=== PATIENT | male | born 1945 | race Caucasian/White ===

== ENCOUNTER 2017-04-19 08:00 | Inpatient (IN) | payer OTHER, MEDICARE ==
[~2017-04-19] VITALS: Ht 180.3 cm; Wt 100.2 kg
[2017-04-19] VITALS (7 sets, daily range): BP systolic 113–152; BP diastolic 72–87; PULSE 62–87; RESP 16–20; TEMP 96.6–98.1; O2SAT 97–98
[~2017-04-19 08:00] MED LIST: CEPH500C3 PO; KRIL300C3 PO; MULTCAP13 PO; NIAC500T18 PO; PAXI30TA7 PO
[2017-04-19] MEDS ORDERED: MULT-65 PO (08:26)
[2017-04-19] MEDS ORDERED: NIAC100T2 PO (08:26)
[2017-04-19] MEDS ORDERED: FISHCAP4 PO (08:26)
[2017-04-19] MEDS ORDERED: ASPI81TA23 PO (08:26)
[2017-04-19] MEDS ORDERED: PARO20TA2 PO (08:26)
--- NOTE | 2017-04-19 08:38 | PD ---
HPI Chief Complaint: Bite or Sting Time Seen by Provider: 08:13 Travel History International Travel<30 days: No Contact w/Intl Traveler<30days: No Traveled to known affect area: No History of Present Illness HPI Patient is a 72-year-old male who 2 days ago was bit by his dog, shots are up-to -date and dog is otherwise healthy. He states he is working in his garden and ever since then he's noticed a gradual increase in swelling of his right index finger. He states also hurting him whenever he tries to move it. Denies any fever denies any red streaks on his arm. Cannot recall his last tetanus, no chest pain or shortness of breath abdominal pain no nausea vomiting. PFSH Past Medical History Autoimmune Disease: No Blood Disorders: No Anxiety: Yes (PTSD) Depression: Yes Cancer: Yes (SKIN) Cardiovascular Problems: No Diabetes: No Diminished Hearing: No Endocrine: No Gastrointestinal Disorders: No Genitourinary: No Hypertension: Yes Immune Disorder: No Implanted Vascular Access Dvce: No Musculoskeletal: Yes (NECK AND SHOULDERS) Neurologic: Yes (TBI / PTSD) Psychiatric: Yes (PTSD) Reproductive: Yes Respiratory: No Immunizations Current: Yes Tetanus Vaccination: > 5 Years Influenza Vaccination: No Past Surgical History Abdominal Surgery: Yes (APPENDECTOMY ,CHOLESCYTECTOMY) Appendectomy: Yes Cholecystectomy: Yes Other Surgery: Yes Social History Alcohol Use: No Tobacco Use: No (QUIT 8 YEARS AGO) Substance Use: No Allergies-Medications (Allergen,Severity, Reaction): Coded Allergies: diatrizoate meglumine (Unverified Allergy, Mild, Vertigo, 04/19/17) gadobenic acid (Unverified Allergy, Mild, Vertigo, 04/19/17) gadodiamide (Unverified Allergy, Mild, Vertigo, 04/19/17) gadoteridol (Unverified Allergy, Mild, Vertigo, 04/19/17) iodixanol (Unverified Allergy, Mild, Vertigo, 04/19/17) iohexol (Unverified Allergy, Mild, Vertigo, 04/19/17) Reported Meds & Prescriptions Reported Meds & Active Scripts Active Reported Niacin Unknown Strength Tab Unknown Dose PO DAILY Multi-Vitamin Daily (Multiple Vitamin) 1 Tab Tab 1 Tab PO DAILY Fish Oil + D3 (Fish Oil-Cholecalciferol) 1,200-1,000 Mg-Unit Cap 1 Cap PO DAILY Aspirin EC (Aspirin) 81 Mg Tabdr 81 Mg PO DAILY Paroxetine (Paroxetine HCl) 20 Mg Tab 20 Mg PO DAILY Review of Systems Except as stated in HPI: all other systems reviewed are Neg Physical Exam Narrative GENERAL: Well-developed well-nourished, no obvious distress. Quite pleasant. SKIN: Focused skin assessment warm/dry. There is a laceration on the radial aspect of the index finger over the distal phalanx. Which is begun to heal. It is approximately centimeter long. There is significant erythema over the entirety of the index finger now starting to spread and the dorsum of the hand. HEAD: Atraumatic. Normocephalic. EYES: Pupils equal and round. No scleral icterus. No injection or drainage. ENT: No nasal bleeding or discharge. Mucous membranes pink and moist. NECK: Trachea midline. No JVD. CARDIOVASCULAR: Regular rate and rhythm. No murmur appreciated. RESPIRATORY: No accessory muscle use. Clear to auscultation. Breath sounds equal bilaterally. GASTROINTESTINAL: Abdomen soft, non-tender, nondistended. Hepatic and splenic margins not palpable. MUSCULOSKELETAL: No obvious deformities. No clubbing. No cyanosis. There is significant edema of his right index finger and a sausagelike fashion. There is pain with passive extension but no other Knavel's sign is present. The edema is starting to spread into the hand, the fingers warm erythematous and is unable to bend it. NEUROLOGICAL: Awake and alert. No obvious cranial nerve deficits. Motor grossly within normal limits. Normal speech. PSYCHIATRIC: Appropriate mood and affect; insight and judgment normal. Data Data Last Documented VS Vital Signs Date Time Temp Pulse Resp B/P (MAP) Pulse Ox O2 Delivery O2 Flow Rate FiO2 04/19/17 09:30 67 16 113/76 (88) 97 Room Air 04/19/17 08:07 98.1 Orders Orders Basic Metabolic Panel (Bmp) (04/19/17 08:35) Complete Blood Count With Diff (04/19/17 08:35) Ecg Monitoring (04/19/17 08:35) Iv Access Insert/Monitor (04/19/17 08:35) Oximetry (04/19/17 08:35) Oxygen Administration (04/19/17 08:35) Sodium Chloride 0.9% Flush (Ns Flush) (04/19/17 08:45) Piperacil-Tazo 4.5 Gm Premix (Zosyn 4.5 (04/19/17 08:45) Hand, Complete ([id number]) (04/19/17 ) [id number] (Booster) Inj (Boostrix (04/19/17 09:00) Aspirin Ec (Ecotrin Ec) (04/20/17 09:00) Paroxetine (Paxil) (04/20/17 09:00) Admit Order (Ed Use Only) (04/19/17 ) Labs Laboratory Tests Test 04/19/17 08:55 White Blood Count 13.0 TH/MM3 Red Blood Count 5.21 MIL/MM3 Hemoglobin 11.9 GM/DL Hematocrit 36.6 % Mean Corpuscular Volume 70.3 FL Mean Corpuscular Hemoglobin 22.9 PG Mean Corpuscular Hemoglobin Concent 32.6 % Red Cell Distribution Width 15.7 % Platelet Count 247 TH/MM3 Mean Platelet Volume 7.8 FL Neutrophils (%) (Auto) 77.8 % Lymphocytes (%) (Auto) 12.4 % Monocytes (%) (Auto) 8.8 % Eosinophils (%) (Auto) 0.6 % Basophils (%) (Auto) 0.4 % Neutrophils # (Auto) 10.1 TH/MM3 Lymphocytes # (Auto) 1.6 TH/MM3 Monocytes # (Auto) 1.1 TH/MM3 Eosinophils # (Auto) 0.1 TH/MM3 Basophils # (Auto) 0.1 TH/MM3 CBC Comment AUTO DIFF Differential Comment AUTO DIFF CONFIRMED Blood Urea Nitrogen 14 MG/DL Creatinine 0.97 MG/DL Random Glucose 134 MG/DL Calcium Level 8.6 MG/DL Sodium Level 137 MEQ/L Potassium Level 3.9 MEQ/L Chloride Level 104 MEQ/L Carbon Dioxide Level 26.7 MEQ/L Anion Gap 6 MEQ/L Estimat Glomerular Filtration Rate 76 ML/MIN [facility] Medical Decision Making Medical Screen Exam Complete: Yes Emergency Medical Condition: Yes Differential Diagnosis Sausage finger, dog bite cellulitis, tetanus status out of date, rabies exposure highly unlikely, sepsis highly unlikely, flexor tenosynovitis highly unlikely by clinical exam. Narrative Course Patient seen and examined in the emergency department, has significant cellulitis of his right index finger. I believe it's beyond the point for by mouth antibiotics. He does have a minimal elevated white blood cell count 13, 000 otherwise no Sirs criteria. Appears well in no distress. Has been given doses Zosyn, discussed with Dr. Mae for admission to the hospital. No discernible fluid collection was palpable and likely will not require surgical intervention. Diagnosis Primary Impression: Cellulitis of finger of right hand Additional Impression: Dog bite Admitting Information Admitting Physician Requests: Admit Condition: Stable Pasquale Do MD Apr 19, 2017 08:38
[2017-04-19] MEDS ORDERED: PIPERACIL-TAZO 4.5 GM PREMIX 100 ML IV ONE (08:45)
[2017-04-19] MEDS ORDERED: SODIUM CHLORIDE 0.9% FLUSH 10 ML FLUSH IVF PRN (08:45)
[2017-04-19 08:59] LABS: AUTOMATED NEUTROPHIL # 10.1 TH/MM3 (1.8-7.7); BASOPHIL # 0.1 TH/MM3 (0-0.2); BASOPHIL % 0.4 % (0.0-2.0); EOSINOPHIL # 0.1 TH/MM3 (0-0.4); EOSINOPHIL % 0.6 % (0.0-4.0); HEMATOCRIT 36.6 % (39.0-51.0); LYMPH % 12.4 % (9.0-44.0); LYMPHOCYTE # 1.6 TH/MM3 (1.0-4.8); MEAN CELL VOLUME 70.3 FL (80.0-100.0); MEAN CORPUSCULAR HEMOGLOBIN 22.9 PG (27.0-34.0); MEAN CORPUSCULAR HGB CONC 32.6 % (32.0-36.0); MONO % 8.8 % (0.0-8.0); NEUT % 77.8 % (16.0-70.0); PLATELET COUNT 247 TH/MM3 (150-450); RED BLOOD COUNT 5.21 MIL/MM3 (4.50-5.90); RED CELL DISTRIBUTION WIDTH 15.7 % (11.6-17.2)
[2017-04-19] MEDS ORDERED: DIPHTH/TETANUS/ACEL PERTUSSIS (BOOSTER) 0.5 ML VIAL/PFS IM ONE (09:00)
[2017-04-19 09:03] LABS: HEMO FLAGS AUTO DIFF
[2017-04-19 09:04] LABS: POTASSIUM 3.9 MEQ/L (3.5-5.1)
[2017-04-19 09:07] LABS: BICARBONATE 26.7 MEQ/L (21.0-32.0)
--- NOTE | 2017-04-19 09:19 | RADRPT ---
EXAM DATE/TIME: 04/19/2017 09:09 [place] COMPARISON: No previous studies available for comparison. INDICATIONS : Right 2nd digit pain and swelling, dog bite 3 days ago. MEDICAL HISTORY : None. SURGICAL HISTORY : None. ENCOUNTER: Initial ACUITY: 3 days PAIN SCORE: 3/10 LOCATION: Right 2nd digit FINDINGS: Three view examination of the right hand demonstrates marked soft tissue swelling of the second finge r however there is no evidence of dislocation or fracture. The carpal bones appear intact. The int erphalangeal and metacarpophalangeal joints are intact. Bony mineralization is normal. Severe osteoa rthritis of the first carpal metacarpal joint CONCLUSION: Marked soft tissue swelling of the second finger without evidence of foreign body. Osteoarthritis of multiple IP joints and the first carpometacarpal joint. Gael Barber MD on April 19, 2017 at 9:17 Board Certified Radiologist. This report was verified electronically.
[2017-04-19 09:34] LABS: SCAN/DIFF AUTO DIFF CONFIRMED
[2017-04-19] MEDS ORDERED: ENALAPRILAT 2.5 MG/2 ML VIAL IV PUSH PRN (10:00)
[2017-04-19] MEDS ORDERED: ACETAMINOPHEN 325 MG TAB PO PRN ×2 (10:00)
[2017-04-19] MEDS ORDERED: ACETAMINOPHEN/HYDROcodone 325 MG/5 MG TAB PO PRN (10:00)
[2017-04-19] MEDS ORDERED: MAGNESIUM HYDROXIDE SUSP 30 ML CUP PO PRN (10:00)
[2017-04-19] MEDS ORDERED: SODIUM CHLORIDE 0.9% FLUSH 10 ML FLUSH IV FLUSH PRN (10:00)
[2017-04-19] MEDS ORDERED: NALOXONE HCL 0.4 MG/ML AMP IV PUSH PRN (10:00)
[2017-04-19] MEDS ORDERED: RESP: ALBUTEROL 2.5 MG/IPRATROPIUM 0.5 MG NEB (PRN) NEB (10:00)
[2017-04-19] MEDS ORDERED: ONDANSETRON HCL 4 MG/2 ML VIAL IVP PRN (10:00)
--- NOTE | 2017-04-19 12:42 | HHI.HP ---
[facility] Primary Care Physician [facility] Admission Diagnosis Dog Bite Cellulitis of Finger. Diagnoses: (1) Cellulitis of finger of right hand (2) Dog bite Chief Complaint: Swollen right index finger Travel History International Travel<30 Days: No Contact w/Intl Traveler <30 Da: No Traveled to Known Affected Are: No History of Present Illness 72-year-old male with no significant past medical history presented to the ED for evaluation of swelling/worsening redness right index finger rolling a bite from his healthy dog 04/15/17. She states, the swelling begun on 04/17/17 associated with redness and feeling warm finger however without any throbbing pain or afebrile episode. The dog shots are up-to -date. Patient has no other issues Review of Systems Except as stated in HPI: all other systems reviewed are Neg Past Family Social History Past Medical History History of posttraumatic stress disorder History of osteoarthritis both knee joints History of hypertension not on any medications Past Surgical History Left fifth finger surgery Left knee surgery complicated by a MRSA infection many many years ago Allergies: Coded Allergies: diatrizoate meglumine (Unverified Allergy, Mild, Vertigo, 04/19/17) gadobenic acid (Unverified Allergy, Mild, Vertigo, 04/19/17) gadodiamide (Unverified Allergy, Mild, Vertigo, 04/19/17) gadoteridol (Unverified Allergy, Mild, Vertigo, 04/19/17) iodixanol (Unverified Allergy, Mild, Vertigo, 04/19/17) iohexol (Unverified Allergy, Mild, Vertigo, 04/19/17) Family History Patient was adopted child Social History Denies alcohol use History of smoking quit 3 years ago Denies substance abuse Physical Exam Vital Signs Vital Signs Date Time Temp Pulse Resp B/P (MAP) Pulse Ox O2 Delivery O2 Flow Rate FiO2 04/19/17 11:36 04/19/17 10:30 68 16 04/19/17 09:30 67 16 113/76 (88) 97 Room Air 04/19/17 08:30 97 Room Air 04/19/17 08:30 16 97 Room Air 04/19/17 08:19 16 04/19/17 08:10 78 16 140/87 (104) 97 Room Air 04/19/17 08:07 98.1 87 16 97 Physical Exam GENERAL: This is a well-nourished, well-developed patient, in no apparent distress. SKIN: No rashes, ecchymoses or lesions. Cool and dry. Swollen right index finger with associated erythema HEAD: Atraumatic. Normocephalic. No temporal or scalp tenderness. EYES: Pupils equal round and reactive. Extraocular motions intact. No scleral icterus. No injection or drainage. ENT: Nose without bleeding, purulent drainage or septal hematoma. Throat without erythema, tonsillar hypertrophy or exudate. Uvula midline. Airway patent. NECK: Trachea midline. No JVD or lymphadenopathy. Supple, nontender, no meningeal signs. CARDIOVASCULAR: Regular rate and rhythm without murmurs, gallops, or rubs. RESPIRATORY: Clear to auscultation. Breath sounds equal bilaterally. No wheezes , rales, or rhonchi. GASTROINTESTINAL: Abdomen soft, non-tender, nondistended. No hepato-splenomegaly , or palpable masses. No guarding. MUSCULOSKELETAL: Extremities without clubbing, cyanosis, or edema. No joint tenderness, effusion, or edema noted. No calf tenderness. Negative Homans sign bilaterally. NEUROLOGICAL: Awake and alert. Cranial nerves II through XII intact. Motor and sensory grossly within normal limits. Five out of 5 muscle strength in all muscle groups. Normal speech. Laboratory Laboratory Tests Test 04/19/17 08:55 White Blood Count 13.0 Red Blood Count 5.21 Hemoglobin 11.9 Hematocrit 36.6 Mean Corpuscular Volume 70.3 Mean Corpuscular Hemoglobin 22.9 Mean Corpuscular Hemoglobin Concent 32.6 Red Cell Distribution Width 15.7 Platelet Count 247 Mean Platelet Volume 7.8 Neutrophils (%) (Auto) 77.8 Lymphocytes (%) (Auto) 12.4 Monocytes (%) (Auto) 8.8 Eosinophils (%) (Auto) 0.6 Basophils (%) (Auto) 0.4 Neutrophils # (Auto) 10.1 Lymphocytes # (Auto) 1.6 Monocytes # (Auto) 1.1 Eosinophils # (Auto) 0.1 Basophils # (Auto) 0.1 CBC Comment AUTO DIFF Differential Comment AUTO DIFF CONFIRMED Blood Urea Nitrogen 14 Creatinine 0.97 Random Glucose 134 Calcium Level 8.6 Sodium Level 137 Potassium Level 3.9 Chloride Level 104 Carbon Dioxide Level 26.7 Anion Gap 6 Estimat Glomerular Filtration Rate 76 Result Diagram: 04/19/17 0855 04/19/17 0855 Imaging Last Impressions Hand X-Ray 04/19/17 0000 Signed Impressions: Service Date/Time: Wednesday, April 19, 2017 09:09 - CONCLUSION: Marked soft tissue swelling of the second finger without evidence of foreign body. Osteoarthritis of multiple IP joints and the first carpometacarpal joint. MD Colby Carrasco VTE Risk Assessment Colby VTE Risk Assessment: Mod/High Risk (score >= 2) Caprini Risk Assessment Model Point Value = 1 Point Value = 2 Point Value = 3 Point Value = 5 Age 41-60 Minor surgery BMI > 25 kg/m2 Swollen legs Varicose veins or History of unexplained or recurrent spontaneous Oral contraceptives or hormone replacement Sepsis (< 1 month) Serious lung disease, including pneumonia (< 1 month) Abnormal pulmonary function Acute myocardial infarction Congestive heart failure (< 1 month) History of inflammatory bowel disease Medical patient at bed rest Age 61-74 Arthroscopic surgery Major open surgery (> 45 min) Laparoscopic surgery (> 45 min) Malignancy Confined to bed (> 72 hours) Immobilizing plaster cast Central venous access Age >= 75 History of VTE Family history of VTE Factor V Leiden Prothrombin [id number] Lupus anticoagulant Anticardiolipin antibodies Elevated serum homocysteine Heparin-induced thrombocytopenia Other congenital or acquired thrombophilia Stroke (< 1 month) Elective arthroplasty Hip, pelvis, or leg fracture Acute spinal cord injury (< 1 month) Prophylaxis Regimen Total Risk Factor Score Risk Level Prophylaxis Regimen 0-1 Low Early ambulation 2 Moderate Order ONE of the following: *Sequential Compression Device (SCD) *Heparin 5000 units SQ BID 3-4 Higher Order ONE of the following medications: *Heparin 5000 units SQ TID *Enoxaparin/Lovenox 40 mg SQ daily (WT < 150 kg, CrCl > 30 mL/min) *Enoxaparin/Lovenox 30 mg SQ daily (WT < 150 kg, CrCl > 10-29 mL/min) *Enoxaparin/Lovenox 30 mg SQ BID (WT < 150 kg, CrCl > 30 mL/min) AND/OR *Sequential Compression Device (SCD) 5 or more Highest Order ONE of the following medications: *Heparin 5000 units SQ TID (Preferred with Epidurals) *Enoxaparin/Lovenox 40 mg SQ daily (WT < 150 kg, CrCl > 30 mL/min) *Enoxaparin/Lovenox 30 mg SQ daily (WT < 150 kg, CrCl > 10-29 mL/min) *Enoxaparin/Lovenox 30 mg SQ BID (WT < 150 kg, CrCl > 30 mL/min) AND *Sequential Compression Device (SCD) Assessment and Plan Problem List: (1) Cellulitis of finger of right hand ICD Code: L03.011 - Cellulitis of right finger Status: Acute (2) Dog bite ICD Code: W54.0XXA - Bitten by dog, initial encounter Status: Acute Assessment and Plan 72-year-old man with Cellulitis of finger of right hand Dog bite Hand x-ray noted and reviewed by me with finding of marked soft tissue swelling of the right index finger Status post Zosyn IV 1 in ED, continue with antibiotic pending culture report Pain management accordingly Consider hand surgery consultation if no improvement Leukocytosis Secondary to above infectious process DVT prophylaxis: Bilateral SCDs Code Status Full code Discussed Condition With Patient, ED physician Physician Certification 2 Midnight Certification Type: Admission for Inpatient Services Order for Inpatient Services The services are ordered in accordance with Medicare regulations or non- Medicare payer requirements, as applicable. In the case of services not specified as inpatient-only, they are appropriately provided as inpatient services in accordance with the 2-midnight benchmark. Estimated LOS (days): 2 days is the estimated time the patient will need to remain in the hospital, assuming treatment plan goals are met and no additional complications. Post-Hospital Plan: Not yet determined Antony Mae MD Apr 19, 2017 12:42
[2017-04-19] MEDS: PIPERACIL-TAZO 3.375 GM PREMIX 50 ML IV SCH (17:25)
[2017-04-19] MEDS: LACTOBACILLUS ACIDOPHILUS TAB PO SCH (20:23)
[2017-04-19] MEDS: SODIUM CHLORIDE 0.9% FLUSH 10 ML FLUSH IV FLUSH SCH (20:24)
[2017-04-20] VITALS: BP 110/63; PULSE 66; RESP 20; TEMP 99; O2SAT 97
[2017-04-20] MEDS: PIPERACIL-TAZO 3.375 GM PREMIX 50 ML IV SCH ×3 (00:46→17:38)
[2017-04-20 04:00] VITALS: BP 108/61; PULSE 61; RESP 20; TEMP 97.8; O2SAT 97
[2017-04-20 06:32] LABS: AUTOMATED NEUTROPHIL # 5.2 TH/MM3 (1.8-7.7); BASOPHIL # 0.1 TH/MM3 (0-0.2); BASOPHIL % 0.8 % (0.0-2.0); EOSINOPHIL # 0.2 TH/MM3 (0-0.4); EOSINOPHIL % 2.5 % (0.0-4.0); HEMATOCRIT 34.8 % (39.0-51.0); LYMPH % 30.3 % (9.0-44.0); LYMPHOCYTE # 2.8 TH/MM3 (1.0-4.8); MEAN CELL VOLUME 70.6 FL (80.0-100.0); MEAN CORPUSCULAR HEMOGLOBIN 23.3 PG (27.0-34.0); MONO % 12.1 % (0.0-8.0); NEUT % 54.3 % (16.0-70.0); PLATELET COUNT 235 TH/MM3 (150-450); RED BLOOD COUNT 4.94 MIL/MM3 (4.50-5.90); RED CELL DISTRIBUTION WIDTH 15.6 % (11.6-17.2); WHITE BLOOD COUNT 9.4 TH/MM3 (4.0-11.0)
[2017-04-20 06:39] LABS: HEMO FLAGS AUTO DIFF
[2017-04-20 06:43] LABS: CHLORIDE 105 MEQ/L (98-107); POTASSIUM 3.9 MEQ/L (3.5-5.1); SODIUM (NA) 139 MEQ/L (136-145)
[2017-04-20 06:49] LABS: ANION GAP 7 MEQ/L (5-15); BICARBONATE 26.9 MEQ/L (21.0-32.0)
[2017-04-20 06:50] LABS: BLOOD UREA NITROGEN 15 MG/DL (7-18)
[2017-04-20 06:52] LABS: ALT (GPT) 23 U/L (12-78)
[2017-04-20 06:53] LABS: AST (GOT) 16 U/L (15-37); GLOMERULAR FILTRATION RATE 76 ML/MIN (>89)
[2017-04-20 06:54] LABS: TOTAL BILIRUBIN ADULT 1.2 MG/DL (0.2-1.0)
[2017-04-20 06:55] LABS: ALKALINE PHOSPHATASE 78 U/L (45-117)
[2017-04-20 07:31] LABS: SCAN/DIFF AUTO DIFF CONFIRMED
[2017-04-20 08:00] VITALS: BP 118/80; PULSE 74; RESP 14; TEMP 96.2; O2SAT 96
[2017-04-20] MEDS: LACTOBACILLUS ACIDOPHILUS TAB PO SCH ×2 (08:21→20:20)
[2017-04-20] MEDS: ASPIRIN EC 81 MG TABEC PO SCH (08:21)
[2017-04-20] MEDS: PARoxetine HCL 20 MG TAB PO SCH (08:21)
[2017-04-20] MEDS: SODIUM CHLORIDE 0.9% FLUSH 10 ML FLUSH IV FLUSH SCH ×2 (08:22→20:20)
--- NOTE | 2017-04-20 10:24 | HHI.PR ---
Subjective Remarks Follow-up cellulitis right index finger 04/20/17-patient seen and examined, states now he can flex his right index finger with less swelling and pain. Afebrile. Objective Vitals Vital Signs Date Time Temp Pulse Resp B/P (MAP) Pulse Ox O2 Delivery O2 Flow Rate FiO2 04/20/17 04:00 97.8 61 20 108/61 (77) 97 04/20/17 00:00 99.0 66 20 110/63 (79) 97 04/19/17 20:00 97.9 66 20 116/85 (95) 97 04/19/17 16:00 97.7 62 20 123/72 (89) 98 04/19/17 12:00 96.6 67 18 152/87 (108) 97 04/19/17 11:36 04/19/17 10:30 68 16 I/O 04/19/17 04/19/17 04/19/17 04/20/17 04/20/17 04/20/17 06:59 14:59 22:59 06:59 14:59 22:59 Intake Total 100 ml 290 ml 170 ml Balance 100 ml 290 ml 170 ml Intake Oral 240 ml 120 ml IV Total 100 ml 50 ml 50 ml # Voids 2 1 # Bowel Movements 0 Result Diagram: 04/20/17 0535 04/20/17 0535 Imaging Last Impressions Hand X-Ray 04/19/17 0000 Signed Impressions: Service Date/Time: Wednesday, April 19, 2017 09:09 - CONCLUSION: Marked soft tissue swelling of the second finger without evidence of foreign body. Osteoarthritis of multiple IP joints and the first carpometacarpal joint. Gael Barber MD Objective Remarks GENERAL: NAD SKIN: Warm and dry. Swelling and improving erythema right index finger HEAD: Normocephalic. EYES: No scleral icterus. No injection or drainage. NECK: Supple, trachea midline. No JVD or lymphadenopathy. CARDIOVASCULAR: Regular rate and rhythm without murmurs, gallops, or rubs. RESPIRATORY: Breath sounds equal bilaterally. No accessory muscle use. GASTROINTESTINAL: Abdomen soft, non-tender, nondistended. MUSCULOSKELETAL: No cyanosis, or edema. BACK: Nontender without obvious deformity. No CVA tenderness. Procedures none A/P Problem List: (1) Cellulitis of finger of right hand ICD Code: L03.011 - Cellulitis of right finger Status: Acute (2) Dog bite ICD Code: W54.0XXA - Bitten by dog, initial encounter Status: Acute Assessment and Plan 72-year-old man with Cellulitis of finger of right hand-improving Dog bite Hand x-ray with finding of marked soft tissue swelling of the right index finger Currently on Zosyn IV pending culture report Pain management accordingly Consider hand surgery consultation if no improvement Leukocytosis Resolved DVT prophylaxis: Bilateral SCDs Antony Mae MD Apr 20, 2017 10:24
[2017-04-20 12:00] VITALS: BP 151/88; PULSE 66; RESP 16; TEMP 96.3; O2SAT 95
[2017-04-20 16:00] VITALS: BP 151/93; PULSE 65; RESP 16; TEMP 97; O2SAT 97
[2017-04-20 20:00] VITALS: BP 124/76; PULSE 69; RESP 20; TEMP 96.7; O2SAT 96
[2017-04-21] VITALS: BP 128/78; PULSE 61; RESP 20; TEMP 96; O2SAT 97
[2017-04-21] MEDS: PIPERACIL-TAZO 3.375 GM PREMIX 50 ML IV SCH ×2 (00:57→10:10)
[2017-04-21 08:00] VITALS: BP 134/77; PULSE 60; RESP 18; TEMP 97.3; O2SAT 96
[2017-04-21] MEDS: PARoxetine HCL 20 MG TAB PO SCH (09:44)
[2017-04-21] MEDS: LACTOBACILLUS ACIDOPHILUS TAB PO SCH (09:45)
[2017-04-21] MEDS: ASPIRIN EC 81 MG TABEC PO SCH (09:45)
--- NOTE | 2017-04-21 09:56 | HHI.PR ---
Subjective Remarks Follow-up cellulitis right index finger 04/20/17-patient seen and examined, states now he can flex his right index finger with less swelling and pain. Afebrile. 04/21/17-patient seen and examined, he has more movement to the right index finger and denies any significant tenderness. Afebrile and would like to be discharged home today. Objective Vitals Vital Signs Date Time Temp Pulse Resp B/P (MAP) Pulse Ox O2 Delivery O2 Flow Rate FiO2 04/21/17 08:00 97.3 60 18 134/77 (96) 96 04/21/17 00:00 96.0 61 20 128/78 (95) 97 04/20/17 20:00 96.7 69 20 124/76 (92) 96 04/20/17 16:00 97.0 65 16 151/93 (112) 97 04/20/17 12:00 96.3 66 16 151/88 (109) 95 I/O 04/20/17 04/20/17 04/20/17 04/21/17 04/21/17 04/21/17 07:00 15:00 23:00 07:00 15:00 23:00 Intake Total 170 ml 290 ml 740 ml 170 ml Balance 170 ml 290 ml 740 ml 170 ml Intake Oral 120 ml 240 ml 740 ml 120 ml IV Total 50 ml 50 ml 50 ml # Voids 1 10 2 # Bowel Movements 0 0 0 Result Diagram: 04/20/17 0535 04/20/17 0535 Imaging Last Impressions Hand X-Ray 04/19/17 0000 Signed Impressions: Service Date/Time: Wednesday, April 19, 2017 09:09 - CONCLUSION: Marked soft tissue swelling of the second finger without evidence of foreign body. Osteoarthritis of multiple IP joints and the first carpometacarpal joint. Gael Barber MD Objective Remarks GENERAL: NAD SKIN: Warm and dry. improved Swelling and erythema right index finger HEAD: Normocephalic. EYES: No scleral icterus. No injection or drainage. NECK: Supple, trachea midline. No JVD or lymphadenopathy. CARDIOVASCULAR: Regular rate and rhythm without murmurs, gallops, or rubs. RESPIRATORY: Breath sounds equal bilaterally. No accessory muscle use. GASTROINTESTINAL: Abdomen soft, non-tender, nondistended. MUSCULOSKELETAL: No cyanosis, or edema. BACK: Nontender without obvious deformity. No CVA tenderness. Procedures none A/P Problem List: (1) Cellulitis of finger of right hand ICD Code: L03.011 - Cellulitis of right finger Status: Resolved (2) Dog bite ICD Code: W54.0XXA - Bitten by dog, initial encounter Status: Acute Assessment and Plan 72-year-old man with Cellulitis of finger of right hand-improving Dog bite Hand x-ray with finding of marked soft tissue swelling of the right index finger Improving on Zosyn IV pending culture report Pain management accordingly Leukocytosis Resolved DVT prophylaxis: Bilateral SCDs Antony Mae MD Apr 21, 2017 09:56
[2017-04-21] MEDS ORDERED: LACTCHW3 CHEW (09:59)
[2017-04-21] MEDS ORDERED: AUGM875T3 PO (09:59)
--- NOTE | 2017-04-21 10:01 | HHI.DS ---
Discharge Summary Admission Date Apr 19, 2017 at 09:46 Discharge Date: Apr 21, 2017 Admitting Diagnosis Dog Bite Cellulitis of Finger. (1) Cellulitis of finger of right hand ICD Code: L03.011 - Cellulitis of right finger Status: Resolved (2) Dog bite ICD Code: W54.0XXA - Bitten by dog, initial encounter Status: Acute Procedures none Brief History - From Admission 72-year-old male with no significant past medical history presented to the ED for evaluation of swelling/worsening redness right index finger rolling a bite from his healthy dog 04/15/17. She states, the swelling begun on 04/17/17 associated with redness and feeling warm finger however without any throbbing pain or afebrile episode. The dog shots are up-to -date. Patient has no other issues CBC/BMP: 04/20/17 0535 04/20/17 0535 Significant Findings Laboratory Tests Test 04/19/17 08:55 04/20/17 05:35 White Blood Count 13.0 TH/MM3 (4.0-11.0) Hemoglobin 11.9 GM/DL (13.0-17.0) 11.5 GM/DL (13.0-17.0) Hematocrit 36.6 % (39.0-51.0) 34.8 % (39.0-51.0) Mean Corpuscular Volume 70.3 FL (80.0-100.0) 70.6 FL (80.0-100.0) Mean Corpuscular Hemoglobin 22.9 PG (27.0-34.0) 23.3 PG (27.0-34.0) Neutrophils (%) (Auto) 77.8 % (16.0-70.0) Monocytes (%) (Auto) 8.8 % (0.0-8.0) 12.1 % (0.0-8.0) Neutrophils # (Auto) 10.1 TH/MM3 (1.8-7.7) Monocytes # (Auto) 1.1 TH/MM3 (0-0.9) 1.1 TH/MM3 (0-0.9) Random Glucose 134 MG/DL (74-106) 112 MG/DL (74-106) Estimat Glomerular Filtration Rate 76 ML/MIN (>89) 76 ML/MIN (>89) Calcium Level 8.4 MG/DL (8.5-10.1) Total Bilirubin 1.2 MG/DL (0.2-1.0) Imaging Last Impressions Hand X-Ray 04/19/17 0000 Signed Impressions: Service Date/Time: Wednesday, April 19, 2017 09:09 - CONCLUSION: Marked soft tissue swelling of the second finger without evidence of foreign body. Osteoarthritis of multiple IP joints and the first carpometacarpal joint. Gael Barber MD PE at Discharge GENERAL: NAD SKIN: Warm and dry. improved Swelling and erythema right index finger HEAD: Normocephalic. EYES: No scleral icterus. No injection or drainage. NECK: Supple, trachea midline. No JVD or lymphadenopathy. CARDIOVASCULAR: Regular rate and rhythm without murmurs, gallops, or rubs. RESPIRATORY: Breath sounds equal bilaterally. No accessory muscle use. GASTROINTESTINAL: Abdomen soft, non-tender, nondistended. MUSCULOSKELETAL: No cyanosis, or edema. BACK: Nontender without obvious deformity. No CVA tenderness. Hospital Course Patient admitted with right index cellulitis secondary to dog bite for which he was started on IV antibiotic with significant improvements of swelling and redness. All cultures remain negative. DVT and GI prophylaxis were provided. Prior to discharge, patient's condition improved and will be discharged home on Augmentin twice a day 5 more days. Pt Condition on Discharge: Stable Discharge Disposition: Discharge Home Discharge Time: <= 30 minutes Discharge Instructions DIET: Follow Instructions for: Heart Healthy Diet Activities you can perform: Regular-No Restrictions Follow up Referrals: PCP Follow-up - 1 Week New Medications: Amoxicillin-Clavulanate (Augmentin) 875-125 Mg Tab 1 TAB PO BID for Infection, #10 TAB 0 Refills Lactobacillus Acidophilus (Lactinex) 1 Chew 1 TAB CHEW DAILY for Nutritional Supplement, #30 TAB 0 Refills Continued Medications: Aspirin DR (Aspirin EC) 81 Mg Tabdr 81 MG PO DAILY, TAB 0 Refills Fish Oil-Cholecalciferol (Fish Oil + D3) 1,200-1,000 Mg-Unit Cap 1 CAP PO DAILY for Nutritional Supplement, #30 CAP 0 Refills Multiple Vitamin (Multi-Vitamin Daily) 1 Tab Tab 1 TAB PO DAILY for Nutritional Supplement, TAB 0 Refills Niacin (Niacin) Unknown Strength Tab Unknown Dose PO DAILY for Nutritional Supplement, #60 TAB 0 Refills Paroxetine (Paroxetine) 20 Mg Tab 20 MG PO DAILY, #30 TAB 0 Refills Antony Mae MD Apr 21, 2017 10:01
[2017-04-21] MEDS: SODIUM CHLORIDE 0.9% FLUSH 10 ML FLUSH IV FLUSH SCH (10:10)
== END 2017-04-21 11:25 | disposition home or self-care (01) | DRG 603 ==
LOC: PHED 08:00 → PHEDA 09:46 → PH3A 11:43
PROVIDERS: ADMIT Hospitalist; ATTEND Hospitalist
DX: L03.011 Cellulitis of right finger (principal); I10 Essential (primary) hypertension; F43.10 Post-traumatic stress disorder, unspecified; M19.90 Unspecified osteoarthritis, unspecified site; Z86.14 Personal history of Methicillin resistant Staphylococcus aureus infection; Z87.891 Personal history of nicotine dependence; Z85.828 Personal history of other malignant neoplasm of skin; W54.0XXA Bitten by dog, initial encounter
CPT/HCPCS: 73130; 80048; 80053; 85025; 90471; 90715; 96365; J2543